=== PATIENT | female | born 1970 | race Caucasian/White ===

== ENCOUNTER → 2017-08-26 | Outpatient (CLI) | payer OTHER ==
[~2017-08-26] MED LIST: BCOIRO; BRINTELLIX20 MG PO; BUPR75 PO; CEPH500 PO; CETI5 PO; ESCI10 PO; LAMO100 PO; LANS30EC; LORA.5 PO; PROM6.25SY PO; PROZAC20 MG PO; RXPROMSY PO; SULTRIDS PO; SULTRISS; VENL75ER
[2017-08-27 08:52] LABS: Candida species (DNA Probe) Negative (NEGATIVE); G. vaginalis (DNA Probe) Negative (NEGATIVE); T. vaginalis (DNA Probe) Negative (NEGATIVE)
== END | disposition home or self-care (01) ==
LOC: LAB 11:40
PROVIDERS: Obstetrics & Gynecology
DX: N76.0 Acute vaginitis (principal)
CPT/HCPCS: 87480; 87510; 87660

== ENCOUNTER 2019-07-09 21:21 | Emergency (ER) | payer OTHER ==
[~2019-07-09] VITALS: Ht 165.1 cm; Wt 72.6 kg
[2019-07-09] MEDS ORDERED: Percocet 5-3251 EACH PO (22:05)
== END 2019-07-09 22:16 | disposition home or self-care (01) ==
LOC: ER 21:21
DX: K04.7 Periapical abscess without sinus (principal); Z88.8 Allergy status to other drugs, medicaments and biological substances; Z91.041 Radiographic dye allergy status; Z88.1 Allergy status to other antibiotic agents; Z79.899 Other long term (current) drug therapy; K21.9 Gastro-esophageal reflux disease without esophagitis; I10 Essential (primary) hypertension; F41.9 Anxiety disorder, unspecified; D64.9 Anemia, unspecified
CPT/HCPCS: 99282; A9270; A9270-GY